=== PATIENT | male | born 1945 | race Caucasian/White ===

== ENCOUNTER → 2017-05-22 | Outpatient (CLI) | payer MEDICARE, OTHER | END | disposition home or self-care (01) | LOC: CFH 13:41 | PROVIDERS: ATTEND Student in an Organized Health Care Education/Training Program | DX: Z13.89 Encounter for screening for other disorder (principal); R91.1 Solitary pulmonary nodule; M25.78 Osteophyte, vertebrae | CPT/HCPCS: 71250 ==